=== PATIENT | male | born 1960 | race Hispanic/Latino ===

== ENCOUNTER 2019-01-04 18:32 | Emergency (ER) | payer OTHER ==
[2019-01-04] MEDS ORDERED: IBUPROFEN 600 MG TABLET ONE (19:09)
== END 2019-01-04 19:13 | disposition home or self-care (01) ==
LOC: EDH 18:32
DX: S91.331A Puncture wound without foreign body, right foot, initial encounter (principal); I10 Essential (primary) hypertension; E11.9 Type 2 diabetes mellitus without complications; Z72.0 Tobacco use; W45.0XXA Nail entering through skin, initial encounter; Y93.89 Activity, other specified; Y92.69 Other specified industrial and construction area as the place of occurrence of the external cause; Y99.8 Other external cause status
CPT/HCPCS: 73630

== ENCOUNTER 2022-08-06 19:40 | Emergency (ER) | payer BC, OTHER ==
[~2022-08-06] VITALS: Ht 160 cm; Wt 104.3 kg
[2022-08-06] MEDS ORDERED: KETOROLAC 15MG/ML VIAL (15MG/ML) IM ONE (21:00)
[2022-08-06] MEDS ORDERED: ORPHENADRINE CITRATE 30 MG/ML ML IM ONE (21:00)
[2022-08-06] MEDS ORDERED: METH-662 PO (21:04)
[2022-08-06] MEDS ORDERED: DICL75TA5 PO (21:04)
[2022-08-06 21:11] VITALS: BP 141/72
== END 2022-08-06 21:18 | disposition home or self-care (01) ==
LOC: EDH 19:40
DX: S29.012A Strain of muscle and tendon of back wall of thorax, initial encounter (principal); E11.9 Type 2 diabetes mellitus without complications; E78.00 Pure hypercholesterolemia, unspecified; I10 Essential (primary) hypertension; Z79.899 Other long term (current) drug therapy; Z20.822 Contact with and (suspected) exposure to COVID-19; X50.1XXA Overexertion from prolonged static or awkward postures, initial encounter; Y93.89 Activity, other specified; Y92.89 Other specified places as the place of occurrence of the external cause; Y99.8 Other external cause status
CPT/HCPCS: 99284; 87635; 87804 ×2; 96372; C9803; J1885; J2360

== ENCOUNTER 2023-10-07 09:48 | Emergency (ER) | payer BC ==
[~2023-10-07] VITALS: Ht 160 cm; Wt 127.0 kg
[~2023-10-07 09:48] MED LIST: DICL75TA5 PO; METH-662 PO
[2023-10-07] MEDS ORDERED: ACET-2893 PO (10:42)
[2023-10-07] MEDS ORDERED: DICL20GE TP (10:42)
[2023-10-07] MEDS: KETOROLAC 30MG VIAL (30MG/ML) IM ONE (10:57)
[2023-10-07 10:59] VITALS: BP 138/82; PULSE 68; RESP 18; O2SAT 97
== END 2023-10-07 11:09 | disposition home or self-care (01) ==
LOC: EDH 09:48
DX: M25.462 Effusion, left knee (principal); M23.42 Loose body in knee, left knee; M25.562 Pain in left knee; E11.9 Type 2 diabetes mellitus without complications; E78.00 Pure hypercholesterolemia, unspecified; I10 Essential (primary) hypertension
CPT/HCPCS: 99284; 73562; 96372; J1885